=== PATIENT | male | born 1995 | race African-American/Black ===

== ENCOUNTER 2017-09-05 12:14 | Emergency (ER) | payer SELFPAY ==
[~2017-09-05] VITALS: Ht 198.1 cm; Wt 82.0 kg
[2017-09-05 12:16] VITALS: BP 133/75
[2017-09-05] MEDS ORDERED: ONDANSETRON 4MG ODT PO ONE (13:45)
[2017-09-05] MEDS ORDERED: ACETAMINOPHEN 500MG TABLET PO ONE (13:45)
[2017-09-05] MEDS ORDERED: SODIUM CHLORIDE 0.9% 1,000 ML IV ONE (14:00)
== END 2017-09-05 16:10 | disposition home or self-care (01) ==
LOC: ER 12:14
DX: J11.1 Influenza due to unidentified influenza virus with other respiratory manifestations (principal); R05 Cough; R50.9 Fever, unspecified
CPT/HCPCS: 96360; 99284; J7030; Q0162; Z7610